=== PATIENT | male | born 1980 | race Caucasian/White ===

== ENCOUNTER 2022-12-29 09:03 | Emergency (ER) | payer MEDICAID, OTHER ==
[~2022-12-29] VITALS: Ht 182.9 cm; Wt 140.8 kg
[2022-12-29 09:45] VITALS: BP 144/87
[2022-12-29] MEDS ORDERED: KETOROLAC TROMETH 60MG/2ML VIAL IM ONE (10:00)
[2022-12-29] MEDS ORDERED: IBUP-1455 PO (11:03)
[2022-12-29] MEDS ORDERED: ACET500T58 PO (11:03)
== END 2022-12-29 11:12 | disposition home or self-care (01) ==
LOC: ER 09:03
DX: S56.912A Strain of unspecified muscles, fascia and tendons at forearm level, left arm, initial encounter (principal); S40.012A Contusion of left shoulder, initial encounter; S50.02XA Contusion of left elbow, initial encounter; W18.39XA Other fall on same level, initial encounter; Y93.89 Activity, other specified; Y92.89 Other specified places as the place of occurrence of the external cause; Y99.8 Other external cause status
CPT/HCPCS: 73030; 73080; 73090; 96372; 99284; J1885